=== PATIENT | male | born 1955 | race Caucasian/White ===

== ENCOUNTER 2023-08-17 06:11 | Inpatient (IN) | payer OTHER ==
[2023-08-17 07:31] LABS: #Basophils 0.07 10x3/uL (0.0-0.2); %Basophils 0.6 % (0.0-1.0); %Eosinophils 1.4 % (0.0-10.0); %Lymphocytes 6.1 % (21.0-51.0); %Neutrophils 88.2 % (42.0-75.0); Hematocrit 42.6 % (42.0-52.0); Hemoglobin 13.8 g/dL (14.0-18.0); Mean Corpuscular HGB CONC 32.4 g/dL (32.0-36.0); Mean Corpuscular Hemoglobin 28.9 pg (27.0-31.0); Mean Corpuscular Volume 89.3 fL (78.0-98.0); Mean Platelet Volume 8.8 fL (7.4-10.4); Platelet Count 378 10x3/uL (130-400); RBC Distribution Width 13.2 % (11.5-14.5); Red Blood Cell (RBC) Count 4.77 mill/uL (4.70-6.10)
[2023-08-17 07:57] LABS: ALT (SGPT) 17 U/L (8-55); AST (SGOT) 11 U/L (5-34); Albumin 3.1 g/dL (3.4-4.8); Alkaline Phosphatase 84 U/L (40-110); Anion Gap 20 mmol/L (10-20); BUN (Urea Nitrogen) 14 mg/dL (8.4-25.7); Bilirubin, Total 0.6 mg/dL (0.2-1.2); Calc. Creatinine Clearance 0 mL/min (70-130); Calcium 8.6 mg/dL (7.8-10.44); Carbon Dioxide 20 mmol/L (23-31); Chloride 106 mmol/L (98-107); Estimated GFR 103; Glucose 155 mg/dL (80-115); Potassium 4.6 mmol/L (3.5-5.1); Protein, Total 6.1 g/dL (5.8-8.1); Sodium 141 mmol/L (136-145)
[2023-08-17] MEDS ORDERED: Acetaminophen 650 MG Suppository PR PRN (09:16)
[2023-08-17] MEDS ORDERED: Ondansetron PF 4 MG/2 ML Vial IVP PRN (09:16)
[2023-08-17] MEDS ORDERED: Acetaminophen 325 MG TAB PO PRN (09:16)
[2023-08-17] MEDS ORDERED: Ondansetron ODT 4 MG TAB PO PRN (09:16)
[2023-08-17] MEDS ORDERED: Ipratropium/Albuterol 3 ML NEB NEB PRN (09:22)
[2023-08-17] MEDS ORDERED: Furosemide 40 MG (4 mL) VIAL ONE (09:26)
[2023-08-17] MEDS ORDERED: LevoFLOXacin 750 mg/D5W 150 ml Premix Bag ONE (09:26)
[2023-08-17 10:34] VITALS: BMI 29.9
[2023-08-17] MEDS: Furosemide 100 MG (10 mL) VIAL SLOW IVP SCH (14:24)
[2023-08-17] MEDS: Ipratropium/Albuterol 3 ML NEB NEB SCH (14:34)
[2023-08-17] MEDS: Carvedilol 3.125 MG TAB PO SCH (17:40)
[2023-08-17] MEDS: Famotidine 20 MG TAB PO SCH (21:26)
[2023-08-17] MEDS: Atorvastatin Calcium 40 MG TAB PO SCH (21:26)
[2023-08-17] MEDS: Sacubitril 49 MG/Valsartan 51 MG TABLET PO SCH (21:26)
[2023-08-17] MEDS: carBAMazepine XR 200 mg ER.Tablet PO SCH (21:26)
[2023-08-18] MEDS: LevoFLOXacin 750 MG TAB PO SCH (05:46)
[2023-08-18 06:04] LABS: #Basophils 0.05 10x3/uL (0.0-0.2); %Basophils 0.5 % (0.0-1.0); %Eosinophils 1.6 % (0.0-10.0); %Lymphocytes 17.9 % (21.0-51.0); %Monocytes 8.8 % (0.0-10.0); %Neutrophils 70.3 % (42.0-75.0); Hematocrit 42.5 % (42.0-52.0); Hemoglobin 13.7 g/dL (14.0-18.0); Mean Corpuscular HGB CONC 32.2 g/dL (32.0-36.0); Mean Corpuscular Hemoglobin 27.9 pg (27.0-31.0); Mean Corpuscular Volume 86.6 fL (78.0-98.0); Platelet Count 380 10x3/uL (130-400); RBC Distribution Width 13.5 % (11.5-14.5); Red Blood Cell (RBC) Count 4.91 mill/uL (4.70-6.10)
[2023-08-18 06:21] LABS: Anion Gap 17 mmol/L (10-20); BUN (Urea Nitrogen) 21 mg/dL (8.4-25.7); Calc. Creatinine Clearance 139 mL/min (70-130); Calcium 8.8 mg/dL (7.8-10.44); Carbon Dioxide 24 mmol/L (23-31); Chloride 106 mmol/L (98-107); Estimated GFR 100; Glucose 130 mg/dL (80-115); Potassium 3.6 mmol/L (3.5-5.1); Sodium 143 mmol/L (136-145)
[2023-08-18] MEDS ORDERED: Aspirin 81 mg Enteric Coated Tablet PO SCH (09:00)
[2023-08-18] MEDS ORDERED: Non-Formulary Item 1 EACH (Ipratropium 200 PUFF Inh) INH SCH (09:00)
[2023-08-18] MEDS ORDERED: MINOCYCLINE 100 MG PO SCH (09:00)
[2023-08-18] MEDS: Sacubitril 49 MG/Valsartan 51 MG TABLET PO SCH (09:04)
[2023-08-18] MEDS: DULoxetine 60 MG CAP PO SCH ×2 (09:04→09:16)
[2023-08-18] MEDS: Carvedilol 3.125 MG TAB PO SCH (09:04)
[2023-08-18] MEDS: Potassium Chloride 20 MEQ TAB PO SCH (09:04)
[2023-08-18] MEDS: Loratadine 10 MG TAB PO SCH (09:04)
[2023-08-18] MEDS: Enoxaparin 40 MG (0.4 mL) SYRINGE SC SCH (09:04)
[2023-08-18] MEDS: Aspirin 81 mg Enteric Coated Tablet PO SCH (09:05)
[2023-08-18] MEDS: methylPREDNISolone Sod Succ/PF 125 MG/2 ML VIAL IVP SCH (09:05)
[2023-08-18] MEDS: Famotidine 20 MG TAB PO SCH (09:07)
[2023-08-18] MEDS: Ezetimibe 10 MG TAB PO SCH (09:07)
[2023-08-18] MEDS: Ipratropium 200 Puff Oral Inhaler INH SCH (13:58)
[2023-08-18] MEDS ORDERED: Non-Formulary Item 1 EACH (Atorvastatin Calcium [Atorvastatin Calcium] 80 MG Tablet) PO SCH (21:00)
[2023-08-18] MEDS: carBAMazepine 200 MG TAB PO SCH (21:01)
[2023-08-18] MEDS: Minocycline HCl 50 MG CAP PO SCH (21:01)
[2023-08-18] MEDS: Atorvastatin Calcium 40 MG TAB PO SCH (21:02)
[2023-08-19 06:13] LABS: #Basophils 0.07 10x3/uL (0.0-0.2); %Basophils 0.5 % (0.0-1.0); %Eosinophils 1.4 % (0.0-10.0); %Lymphocytes 13.5 % (21.0-51.0); %Monocytes 7.9 % (0.0-10.0); %Neutrophils 75.5 % (42.0-75.0); Hematocrit 43.5 % (42.0-52.0); Hemoglobin 14.1 g/dL (14.0-18.0); Mean Corpuscular HGB CONC 32.4 g/dL (32.0-36.0); Mean Corpuscular Hemoglobin 28.3 pg (27.0-31.0); Mean Corpuscular Volume 87.3 fL (78.0-98.0); Mean Platelet Volume 8.8 fL (7.4-10.4); Platelet Count 375 10x3/uL (130-400); RBC Distribution Width 13.5 % (11.5-14.5); Red Blood Cell (RBC) Count 4.98 mill/uL (4.70-6.10)
[2023-08-19 06:29] LABS: Anion Gap 15 mmol/L (10-20); BUN (Urea Nitrogen) 24 mg/dL (8.4-25.7); Calc. Creatinine Clearance 140 mL/min (70-130); Calcium 8.8 mg/dL (7.8-10.44); Carbon Dioxide 26 mmol/L (23-31); Chloride 105 mmol/L (98-107); Estimated GFR 101; Glucose 118 mg/dL (80-115); Potassium 3.8 mmol/L (3.5-5.1); Sodium 142 mmol/L (136-145)
[2023-08-19] MEDS: predniSONE 20 MG TAB PO SCH (09:30)
[2023-08-19] MEDS: Empagliflozin 10 MG TAB PO SCH (15:45)
[2023-08-20 05:40] LABS: #Basophils 0.04 10x3/uL (0.0-0.2); %Basophils 0.5 % (0.0-1.0); %Eosinophils 1.6 % (0.0-10.0); %Neutrophils 66.4 % (42.0-75.0); Hematocrit 43.6 % (42.0-52.0); Mean Corpuscular HGB CONC 32.1 g/dL (32.0-36.0); Mean Corpuscular Hemoglobin 27.8 pg (27.0-31.0); Mean Corpuscular Volume 86.7 fL (78.0-98.0); Mean Platelet Volume 8.6 fL (7.4-10.4); Platelet Count 356 10x3/uL (130-400); RBC Distribution Width 13.5 % (11.5-14.5); Red Blood Cell (RBC) Count 5.03 mill/uL (4.70-6.10)
[2023-08-20 06:26] LABS: Anion Gap 14 mmol/L (10-20); BUN (Urea Nitrogen) 28 mg/dL (8.4-25.7); Calc. Creatinine Clearance 133 mL/min (70-130); Calcium 8.8 mg/dL (7.8-10.44); Carbon Dioxide 25 mmol/L (23-31); Chloride 104 mmol/L (98-107); Estimated GFR 100; Glucose 109 mg/dL (80-115); Potassium 3.6 mmol/L (3.5-5.1); Sodium 139 mmol/L (136-145)
[2023-08-20] MEDS: Furosemide 40 MG (4 mL) VIAL SLOW IVP SCH (10:21)
[2023-08-20] MEDS: Carvedilol 6.25 MG TAB PO SCH (10:21)
[2023-08-20] MEDS: Spironolactone 25 MG TAB PO SCH (10:23)
[2023-08-20] MEDS: Empagliflozin 10 MG TAB PO SCH (10:23)
[2023-08-20] MEDS ORDERED: Electrolyte Replacement Protocol 1 EACH FS SCH (14:30)
[2023-08-20] MEDS ORDERED: Electrolyte Replacement Protocol FS PRN (14:45)
[2023-08-21 04:50] LABS: #Basophils 0.05 10x3/uL (0.0-0.2); %Basophils 0.6 % (0.0-1.0); %Eosinophils 1.7 % (0.0-10.0); %Lymphocytes 20.7 % (21.0-51.0); %Monocytes 7.8 % (0.0-10.0); %Neutrophils 68.3 % (42.0-75.0); Hemoglobin 13.8 g/dL (14.0-18.0); Mean Corpuscular HGB CONC 32.1 g/dL (32.0-36.0); Mean Corpuscular Hemoglobin 28.2 pg (27.0-31.0); Mean Corpuscular Volume 87.8 fL (78.0-98.0); Mean Platelet Volume 8.8 fL (7.4-10.4); Platelet Count 362 10x3/uL (130-400); RBC Distribution Width 13.2 % (11.5-14.5)
[2023-08-21 05:05] LABS: Anion Gap 15 mmol/L (10-20); BUN (Urea Nitrogen) 29 mg/dL (8.4-25.7); Calc. Creatinine Clearance 137 mL/min (70-130); Calcium 8.6 mg/dL (7.8-10.44); Carbon Dioxide 23 mmol/L (23-31); Chloride 107 mmol/L (98-107); Estimated GFR 101; Glucose 106 mg/dL (80-115); Magnesium 2.4 mg/dL (1.6-2.6); Potassium 4.1 mmol/L (3.5-5.1); Sodium 141 mmol/L (136-145)
[2023-08-21] MEDS: Furosemide 40 MG TAB PO SCH (10:08)
[2023-08-21 19:25] VITALS: BP 108/53; TEMP 97.5
== END 2023-08-21 21:58 | DRG 291 ==
LOC: SUATTDRO 06:11 → ERS 06:11 → EEVIPCON 06:11 → 2SW 10:25 → OBSVTOIN 08-19 17:04
PROVIDERS: ADMIT Family Medicine; ATTEND Internal Medicine Critical Care Medicine
DX: I11.0 Hypertensive heart disease with heart failure (principal); I50.23 Acute on chronic systolic (congestive) heart failure; J96.21 Acute and chronic respiratory failure with hypoxia; J44.1 Chronic obstructive pulmonary disease with (acute) exacerbation; I25.10 Atherosclerotic heart disease of native coronary artery without angina pectoris; G47.33 Obstructive sleep apnea (adult) (pediatric); I73.9 Peripheral vascular disease, unspecified; I07.1 Rheumatic tricuspid insufficiency; I25.5 Ischemic cardiomyopathy; I25.2 Old myocardial infarction; Z95.1 Presence of aortocoronary bypass graft; Z98.62 Peripheral vascular angioplasty status; Z87.891 Personal history of nicotine dependence; Z95.5 Presence of coronary angioplasty implant and graft; Z99.81 Dependence on supplemental oxygen; Z79.899 Other long term (current) drug therapy; Z95.0 Presence of cardiac pacemaker; Z88.8 Allergy status to other drugs, medicaments and biological substances
CPT/HCPCS: 36415; 71045; 80048; 80053; 83735; 83880; 84145; 84484; 85025; 93005; 93306; 94640; 96372; 96374; 96375; 96376; G0378; J1650; J1940; J1956; J2930; J7512; J7620